=== PATIENT | female | born 1970 | race Caucasian/White ===

== ENCOUNTER 2016-07-16 18:50 | Emergency (ER) | payer BC ==
[~2016-07-16] VITALS: Ht 157.5 cm; Wt 113.5 kg
[2016-07-16 19:19] LABS: HEMATOCRIT 35.2 % (36.0-46.0); MCH 28.8 PG (29.0-34.0); MCHC 33.2 G/DL (30.0-36.0); MCV 86.7 FL (83-99); MEAN PLAT.VOLUME 10.1 uM^3 (9.5-12.4); PLATELET COUNT 264 K/uL (156-360); RBC DIS.WIDTH-CV 13.2 % (11.8-14.6); RBC DIS.WIDTH-SD 41.2 % (39-53); RED BLOOD COUNT 4.06 M/uL (3.80-5.20); WHITE BLOOD COUNT 9.2 K/uL (4.1-10.2)
[2016-07-16 19:29] LABS: CHLORIDE 100 mEq/L (99-109); POTASSIUM 3.5 mEq/L (3.7-5.4); SODIUM 135 mEq/L (136-147)
[2016-07-16 19:30] LABS: GLUCOSE 97 mg/dL (70-99)
[2016-07-16 19:32] LABS: ANION GAP 12 MEQ/L (2-14)
[2016-07-16 19:34] LABS: GFR ESTIMATE (CALCULATED) > 59 mL/min/
[2016-07-16 19:35] LABS: UREA NITROGEN (BUN) 13 mg/dL (9-23)
[2016-07-16 20:39] LABS: INFLUENZA A VIRAL ANTIGEN POSITIVE; INFLUENZA B VIRAL ANTIGEN NEGATIVE
[2016-07-16] MEDS ORDERED: MOTRIN800 MG PO (20:54)
[2016-07-16] MEDS ORDERED: TAMIFLU75 MG PO (20:55)
[2016-07-16] MEDS ORDERED: PREDNISONE20 MG PO (20:55)
[2016-07-16 22:08] VITALS: BP 123/64
== END 2016-07-16 22:10 | disposition home or self-care (01) ==
LOC: EME 18:50
PROVIDERS: Physician Assistant
DX: J10.1 Influenza due to other identified influenza virus with other respiratory manifestations (principal); R07.89 Other chest pain; E87.6 Hypokalemia; I10 Essential (primary) hypertension
CPT/HCPCS: 71020; 80048; 85027; 87502; 87651 90; 93005; 94640; 94640 76; 94664; 99281; 99284; J7512